=== PATIENT | male | born 1935 | race Two or more races ===

== ENCOUNTER 2018-11-01 13:35 | Outpatient (CLI) | payer OTHER | END 2018-11-01 13:48 | disposition home or self-care (01) | LOC: RAD 501 13:35 | DX: M54.2 Cervicalgia (principal) ==

== ENCOUNTER → 2018-11-26 | Outpatient (CLI) | payer OTHER | END | disposition home or self-care (01) | LOC: NUCLEAR 11-25 08:00 | DX: I65.21 Occlusion and stenosis of right carotid artery (principal) ==

== ENCOUNTER 2019-05-06 08:05 | Outpatient (CLI) | payer OTHER | END 2019-05-06 08:17 | disposition home or self-care (01) | LOC: RAD 08:05 | DX: R10.84 Generalized abdominal pain (principal) ==

== ENCOUNTER → 2019-11-04 | Outpatient (CLI) | payer OTHER | END | disposition home or self-care (01) | LOC: NUCLEAR 09:07 | DX: I65.21 Occlusion and stenosis of right carotid artery (principal) ==

== ENCOUNTER 2020-04-23 13:40 | Outpatient (CLI) | payer OTHER | END 2020-04-23 14:03 | disposition home or self-care (01) | LOC: RAD 13:40 | PROVIDERS: ATTEND Internal Medicine Cardiovascular Disease | DX: R05 Cough (principal); R63.4 Abnormal weight loss ==

== ENCOUNTER 2020-04-27 08:36 | Outpatient (CLI) | payer OTHER | END 2020-04-27 08:43 | disposition home or self-care (01) | LOC: SONOGRAMA 08:36 | PROVIDERS: ATTEND Internal Medicine Cardiovascular Disease | DX: R63.4 Abnormal weight loss (principal); R10.31 Right lower quadrant pain ==

== ENCOUNTER → 2020-09-08 | Outpatient (CLI) | payer OTHER | END | disposition home or self-care (01) | LOC: PPH VACUNA | PROVIDERS: ATTEND Emergency Medicine Pediatric Emergency Medicine | DX: Z23 Encounter for immunization (principal) ==

== ENCOUNTER 2021-01-30 07:44 | Outpatient (CLI) | payer OTHER | END 2021-01-30 07:46 | disposition home or self-care (01) | LOC: NUCLEAR 07:44 | PROVIDERS: ATTEND Internal Medicine Cardiovascular Disease | DX: I25.10 Atherosclerotic heart disease of native coronary artery without angina pectoris (principal); I11.9 Hypertensive heart disease without heart failure; R94.31 Abnormal electrocardiogram [ECG] [EKG]; I45.0 Right fascicular block; I65.23 Occlusion and stenosis of bilateral carotid arteries ==

== ENCOUNTER 2022-06-04 08:00 | Outpatient (CLI) | payer OTHER | END 2022-06-04 08:02 | disposition home or self-care (01) | LOC: NUCLEAR 08:00 | PROVIDERS: ATTEND Internal Medicine Cardiovascular Disease | DX: G45.9 Transient cerebral ischemic attack, unspecified (principal) ==

== ENCOUNTER 2023-04-01 10:46 | Outpatient (CLI) | payer OTHER | END 2023-04-01 10:47 | disposition home or self-care (01) | LOC: NUCLEAR 10:46 | PROVIDERS: ATTEND Internal Medicine Cardiovascular Disease | DX: G45.9 Transient cerebral ischemic attack, unspecified (principal) ==